=== PATIENT | female | born 1985 | race Caucasian/White ===

== ENCOUNTER 2025-01-05 15:28 | Emergency (ER) | payer OTHER, SELFPAY ==
[2025-01-05 15:33] VITALS: BP 148/101
[2025-01-05 15:48] LABS: % Basophils 0.6 % (0-2); % Eosinophils 0.9 % (0-6); % Immature Granulocytes 0.3 % (0-0.5); % Lymphocytes 30.3 % (20.5-51.1); % Monocytes 7.2 % (1.7-9.3); % Neutrophils 60.7 % (42.2-75.2); Absolute Basophils 0.1 10^3/uL (0-0.2); Absolute Eosinophils 0.1 10^3/uL (0-0.7); Absolute Lymphocytes 3.3 10^3/uL (1.2-3.4); Absolute Monocytes 0.8 10^3/uL (0.1-0.6); Absolute Neutrophils 6.5 10^3/uL (1.4-6.5); Hematocrit 41.2 % (37.0-47.0); Hemoglobin 13.7 g/dL (12.0-16.0); Mean Corp Hgb Conc. 33.3 g/dL (33.0-37.0); Mean Corpuscular Hgb 29.4 pg (27.0-31.0); Mean Corpuscular Volume 88.4 fL (81.0-99.0); Mean Platelet Volume 9.3 fL (7.4-10.4); Nucleated Red Blood Cells % 0 %; Platelet Count 333 10^3/uL (130-400); Red Blood Cell Count 4.66 10^6/uL (4.20-5.40); Red Cell Dist. Width 13.2 % (11.5-14.5); White Blood Cell Count 10.7 10^3/uL (4.8-10.8)
[2025-01-05 16:19] LABS: ALT (SGPT) 14 U/L (0-35); AST (SGOT) 16 U/L (14-36); Albumin 4.1 g/dl (3.5-5.0); Alkaline Phosphatase 45 U/L (38-126); Blood Urea Nitrogen 17 mg/dl (7-17); Calcium 9.7 mg/dl (8.4-10.2); Carbon Dioxide 26 mmol/L (22-30); Chloride 107 mmol/L (98-107); Glucose 100 mg/dl (70-99); Potassium 4.8 mmol/L (3.5-5.1); Sodium 140 mmol/L (135-145); Total Bilirubin 0.4 mg/dl (0.2-1.3); eGFR > 60.00
[2025-01-05 16:20] LABS: Troponin I < 0.012 ng/ml
[2025-01-05 19:30] VITALS: BP 145/99
[2025-01-05 19:48] LABS: APTT 27.5 Sec (23.4-35.0)
[2025-01-05 20:04] LABS: Troponin I < 0.012 ng/ml
[2025-01-05] MEDS: MOTRIN 600 MG PO (20:31)
[2025-01-05 20:51] VITALS: BP 140/92
[2025-01-05 21:32] LABS: D-Dimer < 0.27 ug/mlFEU (0.00-0.50)
--- NOTE | 2025-01-05 21:49 | ED.GENMED ---
History of Present Illness
General
Chief Complaint: Cardiac Symptoms
Time Seen by Provider: 01/05/25 19:48
History of Present Illness
History of Present Illness:
39-year-old female with history of hyperlipidemia presents to the emergency department for eval ration of left-sided chest discomfort that began earlier in the day, nonexertional and nonpleuritic in nature. Pain radiates to the right chest wall.
No upper extremity paresthesias or shortness of breath. No recent illnesses. She does take hormonal contraceptives
Past History
Past History
ED Past Medical History: Other (PCOS)
ED Past Surgical History:
Social History
Tobacco: Non-smoker
Alcohol: None
Personal:
Living: with family
Employment: Employed
Family History
Family History: Other (Noncontributory)
Review of Systems
Review of Systems
Allergies reviewed?: Yes
All Other Systems: ROS reviewed and negative except as documented in HPI and ROS
Phy Exam
Physical Exam
Physical Exam:
GEN: Well appearing, NAD, WDWN
HEENT: Oral mucosa moist, no scleral icterus
Cardiac: Regular rate and rhythm, no murmurs
Lung: No respiratory distress, no tachypnea, lungs clear to auscultation bilaterally
MSK: No gross deformity or injuries
Skin: Good color, no pallor or jaundice, no rashes
Neuro: AO x3, moves all extremities freely
Psych: Calm, cooperative
Course
Orders/Labs/Results
Orders:
Orders
01/05/25 15:29
ECG [Electrocardiogram (*1)] Urgent
Reason for Study: Chest Pain
EKG- Treatment ONCE
01/05/25 15:30
CR Chest - 2 Views Urgent
Comment:
Reason For Exam: chest pain
01/05/25 15:41
Complete Blood Count/With Diff Urgent
Comprehensive Metabolic Panel Urgent
Troponin I Urgent
01/05/25 19:17
ECG [Electrocardiogram (*1)] Urgent
Reason for Study: Chest Pain
01/05/25 19:18
EKG- Treatment ONCE
01/05/25 19:26
D-Dimer Urgent
Comment: ADD ON
PTT Urgent
Troponin I Urgent
01/05/25 20:06
Ibuprofen [Motrin] 600 mg PO NOW STA
01/05/25 20:09
Add On- LAB Urgent
Tests Added?: d dimer
Abnormal Lab Results
01/05/25
15:41
Absolute Monos (auto) 0.8 H 10^3/uL
(0.1-0.6)
Glucose 100 H mg/dl
(70-99)
01/05/25 15:41
01/05/25 15:41
Vital Signs
Initial and Last Documented VS:
Initial Vital Signs
Temp Pulse Resp BP Pulse Ox
98.7 F 92 16 148/101 99
01/05/25 15:33 01/05/25 15:33 01/05/25 15:33 01/05/25 15:33 01/05/25 15:33
Last Documented Vital Signs
Temp Pulse Resp BP Pulse Ox
98.7 F 84 14 140/92 98
01/05/25 15:33 01/05/25 20:36 01/05/25 20:36 01/05/25 20:51 01/05/25 20:36
MDM/Problems Addressed
MDM/Problems Addressed:
Patient's workup was grossly unremarkable, negative troponin x 2 and normal EKG rules out ACS, negative D-dimer rules out PE. Chest x-ray reassuring. Likely mechanical/musculoskeletal etiology
*Critical Care Note
Total Time (30-74mins, 75-104mins- exclusive of procedures): Not Applicable
ED Attending Note
-
Portions of this chart may have been created with voice recognition software.� Occasional wrong word or��sound alike� substitutions may have occurred due to the inherent limitations of voice recognition software.
Discharge Plan
Departure
Patient Disposition: Home (Routine Discharge)
Date of Disposition: 01/05/25
Time of Disposition: 21:50
Patient with high blood pressure during this ER visit?: No
Discharge Problem:
Chest wall pain
Instructions: Chest Pain (DC)
Prescriptions:
No Action
vit-iron fum-folic ac [ Tablet] 1 EACH tablet
1 ea PO DAILY AT 0700
oxycodone-acetaminophen 5 MG/325 MG tablet
1 tab PO Q4HPRN PRN (Reason: moderate pain) Qty: 30 0RF
ibuprofen 600 MG tablet
600 mg PO Q6HPRN PRN (Reason: moderate pain/cramps) Qty: 0 0RF
docusate sodium 100 MG capsule
100 mg PO BID Qty: 0 0RF
levofloxacin [Levaquin] 750 MG tablet
750 mg PO Daily Qty: 6 0RF
amoxicillin 500 MG capsule
500 mg PO TID Qty: 21 0RF
Referrals:
Pino Irene, DO [Family Provider] -
Interventions
Interventions:
*Risk Screen - Suicide Last Done: 01/05/25 20:34
*General Assessment Last Done: 01/05/25 20:34
*Neglect/Abuse Screening Last Done: 01/05/25 20:34
*ED- Fall Risk Assessment Last Done: 01/05/25 20:34
*ED COVID-19 Vaccine History Last Done: 01/05/25 20:34
*Nursing Disposition Last Done: 01/05/25 22:32
ED- Pulmonary Assessment Last Done: 01/05/25 20:35
ED- Cardiac Assessment Last Done: 01/05/25 20:35
Discharge Date and Time
Discharge Date/Time: 01/05/25 22:33
Print Language: ROMANIAN
== END 2025-01-05 22:33 | disposition home or self-care (01) ==
LOC: EMR 15:28
PROVIDERS: Emergency Medicine; EMERGENCY PHYSICIAN Emergency Medicine; FAMILY PHYSICIAN Family Medicine
DX: R07.89 Other chest pain (principal); E78.00 Pure hypercholesterolemia, unspecified
CPT/HCPCS: 99283; 71046; 80053; 84484; 85025; 85379; 85730; 93005